=== PATIENT | female | born 1975 | race Caucasian/White ===

== ENCOUNTER → 2016-08-31 | Outpatient (CLI) | payer BC ==
--- NOTE | 2016-08-31 09:27 | MM ---
Reason for exam: follow-up at short interval from prior study. Last mammogram was performed 8 months ago. History: Patient has history of high-risk lesion on a previous biopsy at age 40 and is nulliparous. Family history of breast cancer in paternal grandmother at age 70 and breast cancer in paternal aunt at age 40. High risk MG pre op needle loc LT of the left breast, February 26, 2016. High risk MG stereo VAD BX LT of the left breast, January 16, 2016. Benign excisional biopsy of the left breast, 1990. Took hormonal contraceptives for 20 years beginning at age 20. Physical Findings: Nurse did not find any significant physical abnormalities on exam. MG 3D Diag Mammo W/Cad LT CC and MLO view(s) were taken of the left breast. Prior study comparison: January 09, 2016, left breast MG work up mamm w CAD LT. January 03, 2016, bilateral MG 3d screening mammo w/cad. The breast tissue is heterogeneously dense. This may lower the sensitivity of mammography. There is no discrete abnormality. Previous lumpectomy in the left breast. These results were verbally communicated with the patient and result sheet given to the patient on 08/31/16. ASSESSMENT: Benign, BI-RAD 2 RECOMMENDATION: Return to routine screening mammogram schedule for both breasts. Back on schedule for December 2016.
== END | disposition home or self-care (01) ==
LOC: RADMAMWWP 08:26
PROVIDERS: ATTEND Surgery
DX: R92.8 Other abnormal and inconclusive findings on diagnostic imaging of breast (principal)
CPT/HCPCS: G0206; G0279

== ENCOUNTER → 2017-01-06 | Outpatient (CLI) | payer BC ==
--- NOTE | 2017-01-07 10:20 | MM ---
Reason for exam: screening (asymptomatic). Last mammogram was performed 4 months ago. History: Patient has history of high-risk lesion on a previous biopsy at age 40 and is nulliparous. Family history of breast cancer in paternal grandmother at age 70 and breast cancer in paternal aunt at age 40. High risk MG pre op needle loc LT of the left breast, February 26, 2016. High risk MG stereo VAD BX LT of the left breast, January 16, 2016. Benign excisional biopsy of the left breast, 1990. Took hormonal contraceptives for 20 years beginning at age 20. Physical Findings: A clinical breast exam by your physician is recommended on an annual basis and results should be correlated with mammographic findings. MG 3D Screening Mammo W/Cad Bilateral CC and MLO view(s) were taken. Prior study comparison: August 31, 2016, left breast MG 3d diag mammo w/cad LT. January 03, 2016, bilateral MG 3d screening mammo w/cad. December 18, 2014, bilateral MG screening mammo w CAD. The breast tissue is heterogeneously dense. This may lower the sensitivity of mammography. There is no discrete abnormality. No significant changes when compared with prior studies. ASSESSMENT: Negative, BI-RAD 1 RECOMMENDATION: Routine screening mammogram of both breasts in 1 year.
== END | disposition home or self-care (01) ==
LOC: RADMAMWWP 16:47
PROVIDERS: ATTEND Obstetrics & Gynecology
DX: Z12.31 Encounter for screening mammogram for malignant neoplasm of breast (principal)
CPT/HCPCS: 77063; G0202

== ENCOUNTER → 2018-02-15 | Outpatient (CLI) | payer BC ==
--- NOTE | 2018-02-16 11:50 | MM ---
Reason for exam: screening (asymptomatic). Last mammogram was performed 1 year and 1 month ago. History: Patient has history of high-risk lesion on a previous biopsy at age 40 and is nulliparous. Family history of breast cancer in paternal grandmother at age 70 and breast cancer in paternal aunt at age 40. High risk MG pre op needle loc LT of the left breast, February 26, 2016. High risk MG stereo VAD BX LT of the left breast, January 16, 2016. Benign excisional biopsy of the left breast, 1990. Took hormonal contraceptives for 20 years beginning at age 20. Physical Findings: A clinical breast exam by your physician is recommended on an annual basis and results should be correlated with mammographic findings. MG 3D Screening Mammo W/Cad Bilateral CC and MLO view(s) were taken. Prior study comparison: January 06, 2017, bilateral MG 3d screening mammo w/cad. August 31, 2016, left breast MG 3d diag mammo w/cad LT. The breast tissue is heterogeneously dense. This may lower the sensitivity of mammography. There are clips in the left breast. There is no discrete abnormality. ASSESSMENT: Benign, BI-RAD 2 RECOMMENDATION: Routine screening mammogram of both breasts in 1 year.
== END | disposition home or self-care (01) ==
LOC: RADMAMWWP 07:53
PROVIDERS: ATTEND Obstetrics & Gynecology
DX: Z12.31 Encounter for screening mammogram for malignant neoplasm of breast (principal)
CPT/HCPCS: 77063; 77067

== ENCOUNTER → 2019-05-25 | Outpatient (CLI) | payer OTHER ==
--- NOTE | 2019-05-26 14:29 | MM ---
Reason for exam: screening (asymptomatic). Last mammogram was performed 1 year and 3 months ago. History: Patient has history of high-risk lesion on a previous biopsy at age 40 and is nulliparous. Family history of breast cancer in paternal grandmother at age 70 and breast cancer in paternal aunt at age 40. High risk MG pre op needle loc LT of the left breast, February 26, 2016. High risk MG stereo VAD BX LT of the left breast, January 16, 2016. Benign excisional biopsy of the left breast, 1990. Took hormonal contraceptives for 20 years beginning at age 20. Physical Findings: A clinical breast exam by your physician is recommended on an annual basis and results should be correlated with mammographic findings. MG 3D Screening Mammo W/Cad Bilateral CC and MLO view(s) were taken. Prior study comparison: February 15, 2018, bilateral MG 3d screening mammo w/cad. January 06, 2017, bilateral MG 3d screening mammo w/cad. The breast tissue is heterogeneously dense. This may lower the sensitivity of mammography. There is no discrete abnormality. Stable post operative changes upper outer quadrant left breast. No significant changes when compared with prior studies. ASSESSMENT: Benign, BI-RAD 2 RECOMMENDATION: Routine screening mammogram of both breasts in 1 year.
== END | disposition home or self-care (01) ==
LOC: RADMAMWWP 12:31
PROVIDERS: ATTEND Obstetrics & Gynecology
DX: Z12.31 Encounter for screening mammogram for malignant neoplasm of breast (principal); Z80.3 Family history of malignant neoplasm of breast
CPT/HCPCS: 77063; 77067

== ENCOUNTER 2019-06-24 16:32 | Emergency (ER) | payer OTHER ==
[2019-06-24 16:37] VITALS: RESP 18; TEMP 98.2
[2019-06-24] MEDS ORDERED: ONDANSETRON 4 MG/2 ML VIAL IVP STA (16:58)
[2019-06-24] MEDS ORDERED: SODIUM CHLORIDE 0.9% 500 ML 500 ML IV STA (16:58)
[2019-06-24] MEDS ORDERED: MORPHINE SULFATE 4 MG/ML SYRINGE IV STA (16:58)
[2019-06-24] MEDS ORDERED: KETOROLAC 30 MG/ML 1 ML VIAL IVP STA (16:58)
[2019-06-24] MEDS ORDERED: SODIUM CHLORIDE 0.9% 1,000 ML IV STA (16:58)
--- NOTE | 2019-06-24 17:28 | ED ---
Abdominal Pain HPI - General Chief Complaint: Abdominal Pain Stated Complaint: L side pain Time Seen by Provider: 06/24/19 16:53 Source: patient Mode of arrival: ambulatory Limitations: no limitations - History of Present Illness Initial Comments: This 43-year-old female presents complaining of some left lower quadrant abdominal pain. She states that this came on fairly suddenly at approximately 3 PM today. She relates that over the past couple of days she has had some increased urinary frequency. She was seen in her doctor's office yesterday and had a negative urine. She denies any possibility of as she is currently menstruating. She has had some nausea but no vomiting, diarrhea, constipation, fever, or chills. She denies any previous similar incidents. There is no flank pain. She denies any history of kidney stones. She states that the pain is severe in nature. No other complaints or modifying factors. - Related Data Home Medications Medication Instructions Recorded Confirmed Cetirizine HCl [Zyrtec] 10 mg PO DAILY 02/25/16 02/26/16 Cholecalciferol (Vitamin D3) 10,000 unit PO DAILY 02/25/16 02/26/16 [Vitamin D3] Teriflunomide [Aubagio] 14 mg PO DAILY 02/25/16 02/26/16 Previous Rx's Medication Instructions Recorded traMADol HCl [Ultram] 100 mg PO Q4HR PRN #30 tab 02/26/16 Ciprofloxacin HCl [Cipro] 500 mg PO Q12HR #14 tablet 06/24/19 Hydrocodone/Acetaminophen [Widen 1 - 2 each PO Q4HR PRN #20 tab 06/24/19 5-325] Ondansetron Odt [Zofran ODT] 8 mg PO Q8HR PRN #15 tab 06/24/19 Tamsulosin [Flomax] 0.4 mg PO DAILY #15 cap 06/24/19 Allergies Allergy/AdvReac Type Severity Reaction Status Date / Time amoxicillin Allergy Rash/Hives Verified 02/25/16 09:22 Sulfa (Sulfonamide Allergy Rash/Hives Verified 02/25/16 09:22 Antibiotics) codeine AdvReac migraine, Verified 02/25/16 09:22 N/V Review of Systems ROS Statement: Those systems with pertinent positive or pertinent negative responses have been documented in the HPI. ROS Other: All systems not noted in ROS Statement are negative. Past Medical History Past Medical History: Neurologic Disorder Additional Past Medical History / Comment(s): multiple sclerosis History of Any Multi-Drug Resistant Organisms: None Reported Past Surgical History: Breast Surgery, Orthopedic Surgery Additional Past Surgical History / Comment(s): right knee surg., breast biopsy Past Anesthesia/Blood Transfusion Reactions: No Reported Reaction Past Psychological History: No Psychological Hx Reported Smoking Status: Current every day smoker Past Alcohol Use History: Occasional Past Drug Use History: None Reported - Past Family History Father Family Medical History: Cancer General Exam - General Exam Comments Initial Comments: GENERAL: The patient is well nourished and well hydrated. VITAL SIGNS: Heart rate, blood pressure, respiratory rate reviewed as recorded in nurse's notes. EYES: Pupils are round and reactive. Extraocular movements are intact. No conjunctival / lid redness or swelling. ENT: No external evidence of injury, swelling, or ecchymosis. Airway is patent. Throat is clear. NECK: Nontender. No swelling or evidence of injury. No subcutaneous emphysema. T rachea is midline. No thyroid mass. HEART: Regular rate and rhythm. Good peripheral pulses. LUNGS/CHEST: Breath sounds clear and equal bilaterally. No rales, rhonchi, or wheezes. No ecchymosis, subcutaneous emphysema, or tenderness. ABDOMEN: Tenderness is noted to the left lower quadrant inferiorly. No flank tenderness noted. No palpable masses or organomegaly. No peritoneal signs. No abdominal wall swelling or ecchymosis. EXTREMITIES: No extremity tenderness. Normal muscle tone and function. No thoracolumbar tenderness. NEUROLOGIC: Sensation is grossly intact. Cranial nerve exam reveals face is symmetrical, tongue is midline, speech is clear. SKIN: No abrasions or ecchymosis is noted. No induration or masses noted. PSYCHIATRIC: Alert and oriented. Appropriate behavior and judgment. Limitations: no limitations Course Vital Signs 06/24/19 06/24/19 06/24/19 16:35 17:21 18:42 Temperature 98.2 F Pulse Rate 97 96 86 Respiratory 18 18 18 Rate Blood Pressure 182/109 148/97 142/81 O2 Sat by Pulse 98 95 95 Oximetry Medical Decision Making - Medical Decision Making The patient was seen and examined. All diagnostics are reviewed. An IV is established and she does receive some IV morphine as well as some Zofran. The white blood cell count is slightly elevated but otherwise the laboratories unremarkable. The urine shows a degree of hematuria. The computed tomography scan of the abdomen and pelvis does show a 2 mm distal left ureteral stone with associated hydronephrosis. The patient is feeling much improved on recheck. Is felt as though she is stable for discharge. She is counseled regarding her condition in detail and leaves in no distress. Return parameters are discussed. - Lab Data Result diagrams: 06/24/19 17:20 06/24/19 17: Lab Results 06/24/19 06/24/19 06/24/19 Range/Units 17:20 17: 17:20 WBC 14.8 H (3.8-10.6) k/uL RBC 4.66 (3.80-5.40) m/uL Hgb 14.4 (11.4-16.0) gm/dL Hct 44.4 (34.0-46.0) % MCV 95.2 (80.0-100.0) fL MCH 30.8 (25.0-35.0) pg MCHC 32.4 (31.0-37.0) g/dL RDW 12.3 (11.5-15.5) % Plt Count 358 (150-450) k/uL Neutrophils % 70 % Lymphocytes % 23 % Monocytes % 3 % Eosinophils % 2 % Basophils % 1 % Neutrophils # 10.4 H (1.3-7.7) k/uL Lymphocytes # 3.4 (1.0-4.8) k/uL Monocytes # 0.5 (0-1.0) k/uL Eosinophils # 0.3 (0-0.7) k/uL Basophils # 0.1 (0-0.2) k/uL Sodium 138 (137-145) mmol/L Potassium 4.4 (3.5-5.1) mmol/L Chloride 108 H (98-107) mmol/L Carbon Dioxide 23 (22-30) mmol/L Anion Gap 7 mmol/L BUN 17 (7-17) mg/dL Creatinine 0.72 (0.52-1.04) mg/dL Est GFR (CKD-EPI)AfAm >90 (>60 ml/min/1.73 sqM) Est GFR (CKD-EPI)NonAf >90 (>60 ml/min/1.73 sqM) Glucose 80 (74-99) mg/dL Calcium 9.4 (8.4-10.2) mg/dL Total Bilirubin 0.5 (0.2-1.3) mg/dL AST 23 (14-36) U/L ALT 15 (4-34) U/L Alkaline Phosphatase 55 (38-126) U/L Total Protein 6.4 (6.3-8.2) g/dL Albumin 3.9 (3.5-5.0) g/dL Urine Color Urine Appearance (Clear) Urine pH (5.0-8.0) Ur Specific [place] (1.001-1.035) Urine Protein (Negative) Urine Glucose (UA) (Negative) Urine Ketones (Negative) Urine Blood (Negative) Urine Nitrite (Negative) Urine Bilirubin (Negative) Urine Urobilinogen (<2.0) mg/dL Ur Leukocyte Esterase (Negative) Urine RBC (0-5) /hpf Urine WBC (0-5) /hpf Ur Squamous Epith Cells (0-4) /hpf Hyaline Casts (0-2) /lpf Urine Mucus (None) /hpf Urine HCG, Qual Not Detected (Not Detectd) 06/24/19 Range/Units 17:20 WBC (3.8-10.6) k/uL RBC (3.80-5.40) m/uL Hgb (11.4-16.0) gm/dL Hct (34.0-46.0) % MCV (80.0-100.0) fL MCH (25.0-35.0) pg MCHC (31.0-37.0) g/dL RDW (11.5-15.5) % Plt Count (150-450) k/uL Neutrophils % % Lymphocytes % % Monocytes % % Eosinophils % % Basophils % % Neutrophils # (1.3-7.7) k/uL Lymphocytes # (1.0-4.8) k/uL Monocytes # (0-1.0) k/uL Eosinophils # (0-0.7) k/uL Basophils # (0-0.2) k/uL Sodium (137-145) mmol/L Potassium (3.5-5.1) mmol/L Chloride (98-107) mmol/L Carbon Dioxide (22-30) mmol/L Anion Gap mmol/L BUN (7-17) mg/dL Creatinine (0.52-1.04) mg/dL Est GFR (CKD-EPI)AfAm (>60 ml/min/1.73 sqM) Est GFR (CKD-EPI)NonAf (>60 ml/min/1.73 sqM) Glucose (74-99) mg/dL Calcium (8.4-10.2) mg/dL Total Bilirubin (0.2-1.3) mg/dL AST (14-36) U/L ALT (4-34) U/L Alkaline Phosphatase (38-126) U/L Total Protein (6.3-8.2) g/dL Albumin (3.5-5.0) g/dL Urine Color Yellow Urine Appearance Clear (Clear) Urine pH 5.5 (5.0-8.0) Ur Specific [place] 1.026 (1.001-1.035) Urine Protein 1+ H (Negative) Urine Glucose (UA) Negative (Negative) Urine Ketones Negative (Negative) Urine Blood Large H (Negative) Urine Nitrite Negative (Negative) Urine Bilirubin Negative (Negative) Urine Urobilinogen <2.0 (<2.0) mg/dL Ur Leukocyte Esterase Trace H (Negative) Urine RBC >182 H (0-5) /hpf Urine WBC 8 H (0-5) /hpf Ur Squamous Epith Cells 2 (0-4) /hpf Hyaline Casts 1 (0-2) /lpf Urine Mucus Rare H (None) /hpf Urine HCG, Qual (Not Detectd) Disposition Clinical Impression: Acute abdominal pain, Nausea, Ureterolithiasis, Hematuria Disposition: HOME SELF-CARE Condition: Good Instructions (If sedation given, give patient instructions): Kidney Stones (ED) Prescriptions: Ciprofloxacin HCl [Cipro] 500 mg PO Q12HR #14 tablet Tamsulosin [Flomax] 0.4 mg PO DAILY #15 cap Hydrocodone/Acetaminophen [Widen 5-325] 1 - 2 each PO Q4HR PRN #20 tab PRN Reason: Pain Ondansetron Odt [Zofran ODT] 8 mg PO Q8HR PRN #15 tab PRN Reason: Nausea And Vomiting Is patient prescribed a controlled substance at d/c from ED?: Yes When asked, does pt state using other controlled substances?: No If prescribed controlled substance>3 days was MAPS reviewed?: Prescribed <3 Days Referrals: Mina Carson MD [Primary Care Provider] - 1-2 days Fernando Cha MD [STAFF PHYSICIAN] - As Soon As Possible Time of Disposition: 18:52
[2019-06-24 17:33] LABS: Basophils # (A) 0.1 k/uL (0-0.2); Basophils % (A) 1 %; Eosinophils # (A) 0.3 k/uL (0-0.7); Eosinophils % (A) 2 %; HCT 44.4 % (34.0-46.0); HGB 14.4 gm/dL (11.4-16.0); Lymphocytes # (A) 3.4 k/uL (1.0-4.8); Lymphocytes % (A) 23 %; MCH 30.8 pg (25.0-35.0); MCHC 32.4 g/dL (31.0-37.0); MCV 95.2 fL (80.0-100.0); Mean Platelet Volume 6.9; Monocytes # (A) 0.5 k/uL (0-1.0); Monocytes % (A) 3 %; Neutrophils # (A) 10.4 k/uL (1.3-7.7); Neutrophils % (A) 70 %; Platelet Count 358 k/uL (150-450); RBC 4.66 m/uL (3.80-5.40); RDW 12.3 % (11.5-15.5); WBC 14.8 k/uL (3.8-10.6)
[2019-06-24 17:37] LABS: Appearance,Urine Clear (Clear); Bilirubin,Urine Negative (Negative); Blood,Urine Large (Negative); Color,Urine Yellow; Glucose,Urine (UA) Negative (Negative); Hyaline Casts,Urine 1 /lpf (0-2); Ketones,Urine Negative (Negative); Leukocyte Esterase,Urine Trace (Negative); Mucus,Urine Rare /hpf; Nitrite,Urine Negative (Negative); PH, Urine 5.5 (5.0-8.0); Protein,Urine 1+ (Negative); RBC,Urine >182 /hpf (0-5); Specific Gravity,Urine 1.026 (1.001-1.035); Squamous Epithelial Cell,Urine 2 /hpf (0-4); Urobilinogen,Urine <2.0 mg/dL (<2.0); WBC,Urine 8 /hpf (0-5)
[2019-06-24 17:43] LABS: ALT 15 U/L (4-34); AST 23 U/L (14-36); African American GFR (CKD) >90 (>60 ml/min/1.73 sqM); Albumin 3.9 g/dL (3.5-5.0); Alkaline Phosphatase 55 U/L (38-126); Anion Gap 7 mmol/L; Blood Urea Nitrogen 17 mg/dL (7-17); Calcium 9.4 mg/dL (8.4-10.2); Carbon Dioxide 23 mmol/L (22-30); Chloride 108 mmol/L (98-107); Glucose 80 mg/dL (74-99); Non-African American GFR(CKD) >90 (>60 ml/min/1.73 sqM); Potassium 4.4 mmol/L (3.5-5.1); Sodium 138 mmol/L (137-145); Total Bilirubin 0.5 mg/dL (0.2-1.3); Total Protein 6.4 g/dL (6.3-8.2)
[2019-06-24 18:43] VITALS: BP 142/81; PULSE 86
--- NOTE | 2019-06-24 18:44 | CT ---
EXAMINATION TYPE: CT abdomen pelvis wo con DATE OF EXAM: 06/24/2019 COMPARISON: None HISTORY: Left sided inguinal pain. CT DLP: 803.2 mGycm Automated exposure control for dose reduction was used. Multiple axial sections were obtained from the diaphragm to the floor the pelvis without contrast. FINDINGS: Lung bases show mild subsegmental atelectasis. There is no pleural effusion. Heart appears normal. There is small hiatal hernia. Stomach is intact. Liver spleen gallbladder pancreas appear normal. Samir e ducts are not dilated. There is no adrenal mass. Kidneys have fairly normal size. There is left-sided hydronephrosis and per inephric edema. There is mild left-sided hydroureter. There is apparent 2 mm calculus at the left ure teral vesicle junction. Bladder distends smoothly. Right kidney shows no sign of obstruction. There is no retroperitoneal adenopathy. Uterus is anteverted. There is no free fluid in the pelvis. There is no inguinal hernia. There is mil d left side periureteral edema. There is no mesenteric edema. There is no ascites or free air. There is no sign of thickened appendix . There is no bowel obstruction. There is narrowing of L4-5 and L5-S1 disc spaces. There is no compre ssion fracture. Lumbar vertebra have normal alignment. Bony pelvis is intact. IMPRESSION: Spondylosis in the lower lumbar spine. Left side periureteral and perinephric edema with enlarged kidney and hydronephrosis. Small obstructi ng calculus at the ureteral vesicle junction.
== END 2019-06-24 19:11 | disposition home or self-care (01) ==
LOC: EC 16:32
DX: N13.2 Hydronephrosis with renal and ureteral calculous obstruction (principal); G35 Multiple sclerosis; F17.200 Nicotine dependence, unspecified, uncomplicated; Z88.0 Allergy status to penicillin; Z88.2 Allergy status to sulfonamides; Z88.5 Allergy status to narcotic agent; Z79.899 Other long term (current) drug therapy
CPT/HCPCS: 99284; 96374; 96375 ×2; 96361 ×2; 36415; 80053; 85025; 81001; 81025; 74176; J2270; J2405; J1885

== ENCOUNTER → 2020-07-15 | Outpatient (CLI) | payer OTHER ==
--- NOTE | 2020-07-17 09:44 | MM ---
Reason for exam: screening (asymptomatic). Last mammogram was performed 1 year and 2 months ago. History: Patient has history of high-risk lesion on a previous biopsy at age 40 and is nulliparous. Family history of breast cancer in paternal grandmother at age 70 and breast cancer in paternal aunt at age 40. High risk MG pre op needle loc LT of the left breast, February 26, 2016. High risk MG stereo VAD BX LT of the left breast, January 16, 2016. Benign excisional biopsy of the left breast, 1990. Took hormonal contraceptives for 20 years beginning at age 20. Physical Findings: A clinical breast exam by your physician is recommended on an annual basis and results should be correlated with mammographic findings. MG 3D Screening Mammo W/Cad Bilateral CC and MLO view(s) were taken. Prior study comparison: May 25, 2019, bilateral MG 3d screening mammo w/cad. February 15, 2018, bilateral MG 3d screening mammo w/cad. The breast tissue is heterogeneously dense. This may lower the sensitivity of mammography. Post excisional changes left breast. Increasing grouped calcifications left posterior upper outer quadrant at surgical site. ASSESSMENT: Incomplete: need additional imaging evaluation, BI-RAD 0 RECOMMENDATION: Special view mammogram of the left breast. (magnification) If lesion persists on supplemental views, image directed ultrasound is recommended. [facility] will attempt to contact patient to return for supplemental views and ultrasound if indicated.
== END | disposition home or self-care (01) ==
LOC: RADMAMWWP 16:27
PROVIDERS: ATTEND Obstetrics & Gynecology
DX: Z12.31 Encounter for screening mammogram for malignant neoplasm of breast (principal); Z80.3 Family history of malignant neoplasm of breast
CPT/HCPCS: 77063; 77067

== ENCOUNTER → 2020-07-18 | Outpatient (CLI) | payer OTHER ==
--- NOTE | 2020-07-18 09:21 | MM ---
Reason for exam: additional evaluation requested from abnormal screening. Last mammogram was performed less than 1 month ago. History: Patient has history of high-risk lesion on a previous biopsy at age 40 and is nulliparous. Family history of breast cancer in paternal grandmother at age 70 and breast cancer in paternal aunt at age 40. High risk MG pre op needle loc LT of the left breast, February 26, 2016. High risk MG stereo VAD BX LT of the left breast, January 16, 2016. Benign excisional biopsy of the left breast, 1990. Took hormonal contraceptives for 20 years beginning at age 20. Physical Findings: Nurse did not find any significant physical abnormalities on exam. MG 3D Work Up W/Cad LT CC with magnification, LM with magnification, and LM view(s) were taken of the left breast. Prior study comparison: July 15, 2020, bilateral MG 3d screening mammo w/cad. May 25, 2019, bilateral MG 3d screening mammo w/cad. The breast tissue is heterogeneously dense. This may lower the sensitivity of mammography. New increasing amorphous calcifications upper outer quadrant 2-3 o'clock position in a patient with prior excision for ADH. Two site stereotactic core biopsy recommended from a lateral approach. These results were verbally communicated with the patient and result sheet given to the patient on 07/18/20. ASSESSMENT: Suspicious, BI-RAD 4 RECOMMENDATION: Stereotactic core biopsy of the left breast. (two sites, consider lateral approach) Called Dr. Rush's office with mammographic findings and has scheduled an appointment for the patient for 09/05/20 at 11:[address] Bennett. Biopsy scheduled for 08/05/20 at 8:00. PRELIMINARY REPORT CALLED AND FAXED TO DR. BENNETT ON 07/18/20.
== END | disposition home or self-care (01) ==
LOC: RADMAMWWP 07:03
PROVIDERS: ATTEND Obstetrics & Gynecology
DX: R92.8 Other abnormal and inconclusive findings on diagnostic imaging of breast (principal)
CPT/HCPCS: 77061; 77065

== ENCOUNTER → 2020-08-05 | Day surgery (SDC) | payer OTHER ==
[2020-08-05 07:29] VITALS: RESP 16; TEMP 98.3
[2020-08-05 10:09] VITALS: BP 122/81; PULSE 82
--- NOTE | 2020-08-05 17:22 | MM ---
EXAMINATION TYPE: MG stereo VAD BX LT, MG stereo VAD BX addl LT DATE OF EXAM: 08/05/2020 COMPARISON: 07/15/2020, 07/18/2020, 01/06/2017 CLINICAL HISTORY: 44-year-old female with previous history of left breast excision for high risk ADH with recurrent microcalcifications. TECHNIQUE: Stereotactic guided core biopsy of the upper outer quadrant left breast, 2 sites. FINDINGS: The procedure of stereotactic guided core biopsy was explained to the patient. Benefits, alternatives, and risks were discussed. An informed consent was then obtained. [facility]. Short[facility] pathway was a lateral approach. I performed the localization, followed by the remainder of the procedure. SITE 1, Superior, anterior calcifications: A vacuum assisted biopsy gun was used to obtain 6 core samples. A Securemark clip was deposited. SITE 2, Inferior, posterior calcifications: A vacuum assisted biopsy gun was used to obtain 6 core samples. A Trimark clip was deposited. The patient tolerated the procedure well without any immediate complication. The patient was kept in the radiology department for short stay after the procedure and then discharged home in stable condition. Targeted calcifications are identified in specimen mammogram. POST BIOPSY MAMMOGRAM shows: - SITE 1, Superior, anterior calcifications, Securemark: the clip to appear in satisfactory position relative to the targeted area of concern on the preprocedure images. - SITE 2, Inferior, posterior calcifications, Trimark: The clip appears to show 2 cm of medial migration as demonstrated on both PACS and Secureview. IMPRESSION: SUCCESSFUL, UNCOMPLICATED STEREOTACTIC GUIDED CORE BIOPSY OF 2 SITES OF RECURRENT MICROCALCIFICATIONS IN THE UPPER OUTER QUADRANT OF THE LEFT BREAST AT THE SITE OF PREVIOUS EXCISION FOR ADH. NOTE 2 CM OF MEDIAL CLIP MIGRATION AT SITE 2. FULL PATHOLOGY RESULTS TO FOLLOW. Pathology Results: Benign A. LEFT BREAST, SITE 1 SUPERIOR, STEREOTACTIC CORE BIOPSY: Fibrocystic changes including cysts with calcifications, apocrine metaplasia, fibrosis and columnar cell change. B. LEFT BREAST, SITE 2 INFERIOR, STEREOTACTIC CORE BIOPSY: Fibrocystic changes including cysts with calcifications, apocrine metaplasia, fibrosis, sclerosing adenosis and columnar cell change. Recommendation Follow up mammogram of the left breast in 6 months. KODY
== END ==
LOC: RADMAMWWP 07:10
PROVIDERS: ATTEND Surgery
DX: R92.1 Mammographic calcification found on diagnostic imaging of breast (principal); N60.12 Diffuse cystic mastopathy of left breast; Z88.5 Allergy status to narcotic agent; Z88.0 Allergy status to penicillin; Z88.2 Allergy status to sulfonamides
CPT/HCPCS: 88305; 19081; 19082; A4648; J2001

== ENCOUNTER → 2021-02-07 | Outpatient (CLI) | payer OTHER ==
--- NOTE | 2021-02-07 14:09 | MM ---
Reason for exam: follow-up at short interval from prior study. Last mammogram was performed 7 months ago. History: Patient has history of high-risk lesion on a previous biopsy at age 40 and is nulliparous. Family history of breast cancer in paternal grandmother at age 70 and breast cancer in paternal aunt at age 40. Benign MG stereo VAD BX addl LT of the left breast, August 05, 2020. Benign MG stereo VAD BX LT of the left breast, August 05, 2020. High risk MG pre op needle loc LT of the left breast, February 26, 2016. High risk MG stereo VAD BX LT of the left breast, January 16, 2016. Benign excisional biopsy of the left breast, 1990. Took hormonal contraceptives for 20 years beginning at age 20. Physical Findings: Nurse did not find any significant physical abnormalities on exam. MG 3D Diag Mammo W/Cad LT CC and MLO view(s) were taken of the left breast. Prior study comparison: July 18, 2020, left breast MG 3d work up w/cad LT. July 15, 2020, bilateral MG 3d screening mammo w/cad. The breast tissue is heterogeneously dense. This may lower the sensitivity of mammography. Stable post operative changes. No significant new findings when compared with previous films. These results were verbally communicated with the patient and result sheet given to the patient on 02/07/21. ASSESSMENT: Benign, BI-RAD 2 RECOMMENDATION: Follow-up diagnostic mammogram of both breasts in 6 months. Back on schedule.
== END | disposition home or self-care (01) ==
LOC: RADMAMWWP 12:57
PROVIDERS: ATTEND Surgery
DX: R92.2 Inconclusive mammogram (principal); Z80.3 Family history of malignant neoplasm of breast
CPT/HCPCS: 77061; 77065

== ENCOUNTER → 2021-07-24 | Outpatient (CLI) | payer OTHER ==
--- NOTE | 2021-07-24 14:19 | MM ---
Reason for exam: follow-up at short interval from prior study. Last mammogram was performed 5 months ago. History: Patient has history of high-risk lesion on a previous biopsy at age 40 and is nulliparous. Family history of breast cancer in paternal grandmother at age 70 and breast cancer in paternal aunt at age 40. Benign MG stereo VAD BX addl LT of the left breast, August 05, 2020. Benign MG stereo VAD BX LT of the left breast, August 05, 2020. High risk MG pre op needle loc LT of the left breast, February 26, 2016. High risk MG stereo VAD BX LT of the left breast, January 16, 2016. Benign excisional biopsy of the left breast, 1990. Took hormonal contraceptives for 20 years beginning at age 20. Physical Findings: Nurse did not find any significant physical abnormalities on exam. MG 3D Diag Mammo W/Cad MICKY Bilateral CC and MLO view(s) were taken. Prior study comparison: February 07, 2021, left breast MG 3d diag mammo w/cad LT. July 18, 2020, left breast MG 3d work up w/cad LT. The breast tissue is heterogeneously dense. This may lower the sensitivity of mammography. Previous mammotome biopsy in the left breast x 2 from recent biopsies, some calcifications remain posterior upper outer quadant. Post excisional changes left breast for remote ADH. Short term follow up recommended. No significant new findings when compared with previous films. These results were verbally communicated with the patient and result sheet given to the patient on 07/24/21. ASSESSMENT: Probably benign, BI-RAD 3 RECOMMENDATION: Follow-up diagnostic mammogram of the left breast in 6 months.
== END | disposition home or self-care (01) ==
LOC: RADMAMWWP 12:46
PROVIDERS: ATTEND Obstetrics & Gynecology
DX: R92.8 Other abnormal and inconclusive findings on diagnostic imaging of breast (principal); Z80.3 Family history of malignant neoplasm of breast
CPT/HCPCS: 77062; 77066

== ENCOUNTER → 2021-08-02 | Outpatient (CLI) | payer OTHER ==
[2021-08-02 16:46] LABS: Basophils # (A) 0.08 X 10*3/uL (0.00-0.10); Eosinophils # (A) 0.39 X 10*3/uL (0.04-0.35); HCT 41.1 % (37.2-46.3); HGB 13.1 g/dL (12.0-15.0); Immature Grans, Automated 0.3 %; Lymphocytes # (A) 2.98 X 10*3/uL (0.90-5.00); Lymphocytes % (A) 38.6 %; MCH 31.4 pg (27.0-32.0); MCHC 31.9 g/dL (32.0-37.0); MCV 98.6 fL (80.0-97.0); Monocytes % (A) 5.2 %; NRBC Per 100 WBC 0 /100 WBCS (0.0-0.0); Neutrophils # (A) 3.86 X 10*3/uL (1.80-7.70); Neutrophils % (A) 49.9 %; Platelet Count 327 X 10*3/uL (140-440); RBC 4.17 X 10*6/uL (4.10-5.20); RDW 12.8 % (11.5-14.5); WBC 7.73 X 10*3/uL (4.50-10.00)
[2021-08-02 17:14] LABS: African American GFR (CKD) 120.4 (60.0-200.0); Anion Gap 14.4 mmol/L (10.00-18.00); Blood Urea Nitrogen 7.6 mg/dL (9.0-27.0); Carbon Dioxide 23.6 mmol/L (20.0-27.5); Non-African American GFR(CKD) 103.9 (60.0-200.0); Potassium 4.1 mmol/L (3.5-5.5)
== END | disposition home or self-care (01) ==
LOC: LABWHC1 09:40
PROVIDERS: ATTEND Psychiatry & Neurology Neurology
DX: G35 Multiple sclerosis (principal); E55.9 Vitamin D deficiency, unspecified
CPT/HCPCS: 36415; 80051; 82306; 82565; 84450; 84460; 84520; 85025

== ENCOUNTER → 2022-01-26 | Outpatient (CLI) | payer OTHER, BC ==
--- NOTE | 2022-01-26 14:19 | MM ---
Reason for Exam: Follow-up at short interval from prior study. Last screening mammogram was performed 6 month(s) ago. Patient History: Menarche at age 13. Patient has no children. Previous chest radiation therapy. Hormonal Contraceptives, starting at age 20 for 20 years. 1990, Benign Excisional Biopsy on the left side. 08/05/2020, Benign Core Biopsy on the left side. 08/05/2020, Benign Core Biopsy on the left side. 02/26/2016, High risk Core Biopsy on the left side. 01/16/2016, High risk Core Biopsy on the left side. Paternal grandmother had breast cancer, age 70. Paternal aunt had breast cancer, age 40. Last menstrual period: 01/14/2022 Risk Values: Yaneth 5 year model risk: 1.9%. NCI Lifetime model risk: 14.4%. Prior Study Comparison: 07/18/2020 Left Diagnostic Mammogram, [facility]. 02/07/2021 Left Diagnostic Mammogram, [facility]. 07/24/2021 Bilateral Diagnostic Mammogram, [facility]. Tissue Density: Left: The breast tissue is heterogeneously dense. This may lower the sensitivity of mammography. Findings: Analyzed By CAD. No new suspicious masses consultations or distortions. Overall Assessment: Benign, BI-RAD 2 Management: Screening Mammogram of both breasts in 1 year. A clinical breast exam by your physician is recommended on an annual basis and results should be correlated with mammographic findings. This exam should not preclude additional follow-up of suspicious palpable abnormalities. Results were given to the patient verbally at the time of exam. Electronically signed and approved by: Sahil Perry DO
== END | disposition home or self-care (01) ==
LOC: RADMAMWWP 13:32
PROVIDERS: ATTEND Obstetrics & Gynecology
DX: R92.8 Other abnormal and inconclusive findings on diagnostic imaging of breast (principal); Z80.3 Family history of malignant neoplasm of breast
CPT/HCPCS: 77061; 77065

== ENCOUNTER → 2022-04-24 | Outpatient (CLI) | payer OTHER, BC ==
--- NOTE | 2022-04-24 13:33 | XR ---
EXAMINATION TYPE: XR Hip Bilateral Complete DATE OF EXAM: 04/24/2022 COMPARISON: NONE HISTORY: Pain TECHNIQUE: 2 views of each hip submitted FINDINGS: There is no evidence of erosive change or acute fracture. Joint spaces are preserved. IMPRESSION: 1. No evidence of acute fracture or dislocation. Symptoms persist consider MRI
== END | disposition home or self-care (01) ==
LOC: RADXRMAIN 13:00
PROVIDERS: ATTEND Family Medicine
DX: M25.551 Pain in right hip (principal); M25.552 Pain in left hip
CPT/HCPCS: 73521

== ENCOUNTER → 2022-08-25 | Outpatient (CLI) | payer OTHER, BC ==
[2022-08-25 14:31] LABS: Basophils # (A) 0.09 X 10*3/uL (0.00-0.10); Basophils % (A) 1.2 %; Eosinophils # (A) 0.28 X 10*3/uL (0.04-0.35); Eosinophils % (A) 3.8 %; HCT 41.8 % (37.2-46.3); HGB 13.7 g/dL (12.0-15.0); Immature Grans, Automated 0.3 %; Lymphocytes # (A) 2.75 X 10*3/uL (0.90-5.00); Lymphocytes % (A) 37.2 %; MCH 32.2 pg (27.0-32.0); MCHC 32.8 g/dL (32.0-37.0); MCV 98.1 fL (80.0-97.0); Mean Platelet Volume 9.9 fL (9.5-12.2); Monocytes # (A) 0.47 X 10*3/uL (0.20-1.00); Monocytes % (A) 6.4 %; NRBC Per 100 WBC 0 /100 WBCS (0.0-0.0); Neutrophils # (A) 3.78 X 10*3/uL (1.80-7.70); Neutrophils % (A) 51.1 %; Platelet Count 348 X 10*3/uL (140-440); RBC 4.26 X 10*6/uL (4.10-5.20); RDW 12.3 % (11.5-14.5); WBC 7.39 X 10*3/uL (4.50-10.00)
[2022-08-25 14:54] LABS: African American GFR (CKD) 118.8 (60.0-200.0); Albumin 4.1 g/dL (3.8-4.9); Albumin/Globulin Ratio 1.73 (1.60-3.17); Anion Gap 9.8 mmol/L (10.00-18.00); BUN/Creat Ratio 17.74 Ratio (12.00-20.00); Blood Urea Nitrogen 12.4 mg/dL (9.0-27.0); Calcium 9.1 mg/dL (8.7-10.3); Carbon Dioxide 25.2 mmol/L (20.0-27.5); Globulin 2.4 g/dL (1.6-3.3); Non-African American GFR(CKD) 102.5 (60.0-200.0); Potassium 4.1 mmol/L (3.5-5.5); Total Bilirubin 0.4 mg/dL (0.30-1.20); Total Protein 6.5 g/dL (6.2-8.2)
== END | disposition home or self-care (01) ==
LOC: LABWHC1 08:07
PROVIDERS: ATTEND Psychiatry & Neurology Neurology
DX: G35 Multiple sclerosis (principal); E55.9 Vitamin D deficiency, unspecified
CPT/HCPCS: 36415; 80053; 82306; 85025

== ENCOUNTER → 2022-09-15 | Outpatient (CLI) | payer OTHER, BC ==
--- NOTE | 2022-09-16 11:09 | MM ---
Reason for Exam: Screening (asymptomatic). Last mammogram was performed 1 year(s) and 2 month(s) ago. Patient History: Menarche at age 13. Patient has no children. Premenopausal. Previous chest radiation therapy. Hormonal Contraceptives, starting at age 20 for 20 years. 1990, Benign Excisional Biopsy on the left side. 08/05/2020, Benign Core Biopsy on the left side. 08/05/2020, Benign Core Biopsy on the left side. 02/26/2016, High risk Core Biopsy on the left side. 01/16/2016, High risk Core Biopsy on the left side. Paternal grandmother had breast cancer, age 70. Paternal aunt had breast cancer, age 40. Risk Values: Yaneth 5 year model risk: 1.8%. NCI Lifetime model risk: 14.0%. Prior Study Comparison: 02/07/2021 Left Diagnostic Mammogram, [facility]. 07/24/2021 Bilateral Diagnostic Mammogram, [facility]. 01/26/2022 Left MG 3D diag mammo w/cad , [facility]. Tissue Density: The breast tissue is heterogeneously dense. This may lower the sensitivity of mammography. Findings: Analyzed By CAD. There is no suspicious group of microcalcifications or new suspicious mass in either breast. Postsurgical changes left breast. Previous mammotome biopsy within the left breast x3. Overall Assessment: Benign, BI-RAD 2 Management: Screening Mammogram of both breasts in 1 year. A clinical breast exam by your physician is recommended on an annual basis and results should be correlated with mammographic findings. Electronically signed and approved by: Armand Polanco D.O.
== END | disposition home or self-care (01) ==
LOC: RADMAMWWP 08:35
PROVIDERS: ATTEND Obstetrics & Gynecology
DX: Z12.31 Encounter for screening mammogram for malignant neoplasm of breast (principal); Z80.3 Family history of malignant neoplasm of breast
CPT/HCPCS: 77063; 77067

== ENCOUNTER 2022-09-21 11:56 | Day surgery (SDC) | payer OTHER, BC ==
[~2022-09-21 11:56] MED LIST: LACTATED RINGERS 1,000 ML IV SCH; LIDOCAINE 1% (10MG/ML) FOR IV START INTRADERMA PRN
[2022-09-21 12:20] VITALS: RESP 16; TEMP 97.8
--- NOTE | 2022-09-21 12:38 | P.GSHP ---
History of Present Illness H&P Date: 09/21/22 Chief Complaint: GERD, screening colonoscopy A 39-year-old female presents today for EGD and screening colonoscopy. She is issues with GERD. Past Medical History Past Medical History: Neurologic Disorder Additional Past Medical History / Comment(s): multiple sclerosis, history of kidney stones History of Any Multi-Drug Resistant Organisms: None Reported Past Surgical History: Breast Surgery, Orthopedic Surgery Additional Past Surgical History / Comment(s): OPEN. right knee surg., left breast biopsy Past Anesthesia/Blood Transfusion Reactions: No Reported Reaction Past Psychological History: No Psychological Hx Reported Smoking Status: Current every day smoker Past Alcohol Use History: Occasional Additional Past Alcohol Use History / Comment(s): 6 CIGS since age of 17 Past Drug Use History: None Reported - Past Family History Father Family Medical History: Cancer Medications and Allergies Home Medications Medication Instructions Recorded Confirmed Type Cetirizine HCl [Zyrtec] 10 mg PO W/SUPPER 02/25/16 09/16/22 History Teriflunomide [Aubagio] 14 mg PO W/SUPPER 02/25/16 09/16/22 History Cholecalciferol (Vitamin D3) 125 mcg PO DAILY 08/01/22 09/16/22 History [Vitamin D3 (125 MCG = 5,000 IU)] Allergies Allergy/AdvReac Type Severity Reaction Status Date / Time amoxicillin Allergy Rash/Hives Verified 09/21/22 12:20 Penicillins Allergy Rash/Hives Verified 09/21/22 12:20 Sulfa (Sulfonamide Allergy Rash/Hives Verified 09/21/22 12:20 Antibiotics) codeine AdvReac migraine, Verified 09/21/22 12:20 N/V Surgical - Exam Vital Signs Temp Pulse Resp BP Pulse Ox 97.8 F 95 16 137/87 97 09/21/22 12:19 09/21/22 12:19 09/21/22 12:19 09/21/22 12:19 09/21/22 12:19 - General well developed, well nourished, no distress - Eyes PERRL - ENT normal pinna - Neck no masses - Respiratory normal expansion - Cardiovascular Rhythm: regular - Abdomen Abdomen: soft, non tender Assessment and Plan Assessment: GERD. We'll perform EGD. We'll also perform screening colonoscopy.
[2022-09-21] MEDS ORDERED: PROPOFOL 10 MG/ML 20 ML VIAL IV ONE (12:43)
[2022-09-21] MEDS ORDERED: LIDOCAINE 2% INJ 20 MG/ML (2 ML VIAL) ONE (12:43)
--- NOTE | 2022-09-21 13:00 | P.OP ---
Date of Procedure: 09/21/22 Preoperative Diagnosis: GERD Colonoscopy Family history of colon cancer Postoperative Diagnosis: Antral gastritis Sliding hiatal hernia Mild esophagitis Diverticulosis Procedure(s) Performed: EGD Colonoscopy Anesthesia: MAC Surgeon: Akin Davis Pathology: other (Antrum, esophagus) Condition: stable Disposition: PACU Description of Procedure: The patient's placed on the endoscopy table in the lateral position. She received IV sedation. The gastro-/oropharynx passed in the esophagus and sto mach. Scope was then placed through the pylorus. The first and second portion of the duodenum appeared normal. Scope was then brought back the antrum this. Mildly inflamed. A biopsies performed. The scope was then retroflexed stomach. Normal. There was a small sliding hiatal hernia. The GE junction was at 38 cm. The distal esophagus appeared mildly inflamed. A biopsies performed. The proximal esophagus appeared normal. Scope withdrawn for patient. Next digital rectal exam was performed. There was a few external hemorrhoids. The flexible colonoscope was then placed patient anus and passed throughout the colon. The ileocecal valve was visually is. The cecum, ascending and transverse colon appeared normal. In the descending and sigmoid colon was mild diverticular changes. The scope was then brought back the rectum and this appeared normal. Scope withdrawn for patient.
[2022-09-21 13:21] VITALS: BP 120/68; PULSE 76
== END 2022-09-21 13:34 | disposition home or self-care (01) ==
LOC: ORWHC2ENDO 11:56
PROVIDERS: ATTEND Surgery
DX: Z12.11 Encounter for screening for malignant neoplasm of colon (principal); K29.50 Unspecified chronic gastritis without bleeding; K44.9 Diaphragmatic hernia without obstruction or gangrene; K64.4 Residual hemorrhoidal skin tags; K21.00 Gastro-esophageal reflux disease with esophagitis, without bleeding; K57.30 Diverticulosis of large intestine without perforation or abscess without bleeding; Z80.0 Family history of malignant neoplasm of digestive organs; Z87.442 Personal history of urinary calculi; Z98.890 Other specified postprocedural states; F17.200 Nicotine dependence, unspecified, uncomplicated; Z86.59 Personal history of other mental and behavioral disorders; Z88.0 Allergy status to penicillin; Z88.2 Allergy status to sulfonamides; Z88.5 Allergy status to narcotic agent; Z79.899 Other long term (current) drug therapy
CPT/HCPCS: 45378; 81025; 88305; 43239; J2704; J2001

== ENCOUNTER → 2022-11-11 | Outpatient (CLI) | payer OTHER, BC ==
[2022-11-11 14:58] LABS: Basophils % (A) 1.3 %; Eosinophils # (A) 0.37 X 10*3/uL (0.04-0.35); Eosinophils % (A) 4.8 %; HCT 39.4 % (37.2-46.3); HGB 12.9 d/dL (12.0-15.0); Lymphocytes # (A) 2.94 X 10*3/uL (0.90-5.00); MCH 31.6 pg (27.0-32.0); MCHC 32.7 d/dL (32.0-37.0); MCV 96.6 FL (80.0-97.0); Mean Platelet Volume 9.7 FL (9.5-12.2); Monocytes # (A) 0.48 X 10*3/uL (0.20-1.00); Monocytes % (A) 6.2 %; NRBC Per 100 WBC 0 X 10*3/uL (0.00-0.01); Neutrophils # (A) 3.82 X 10*3/uL (1.80-7.70); Neutrophils % (A) 49.4 %; Platelet Count 310 X 10*3/uL (140-440); RBC 4.08 X 10*6/uL (4.10-5.20); RDW 12.6 % (11.5-14.5); WBC 7.73 X 10*3/uL (4.50-10.00)
== END | disposition home or self-care (01) ==
LOC: LABPAT 08:35
PROVIDERS: ATTEND Surgery
DX: Z01.812 Encounter for preprocedural laboratory examination (principal)
CPT/HCPCS: 36415; 85025

== ENCOUNTER 2022-11-20 07:15 | Day surgery (SDC) | payer OTHER, BC ==
[~2022-11-20 07:15] MED LIST changes: +ACETAMINOPHEN TAB 500 MG TAB PO PRN; +DEXAMETHASONE SOD PHOSPHATE 4 MG/ML 1 ML VIAL IV ONE; +HEPARIN SODIUM,PORCINE/PF 5,000 UNIT/0.5 ML SYRINGE SQ PRN; +HYDROmorphone 0.5 MG/0.5 ML SYRINGE IVP PRN; -LACTATED RINGERS 1,000 ML IV SCH; -LIDOCAINE 1% (10MG/ML) FOR IV START INTRADERMA PRN; +ONDANSETRON 4 MG/2 ML VIAL IVP ONE; +SCOPOLAMINE 1 MG/72 HR PATCH TRANSDERM ONE
[2022-11-20] MEDS ORDERED: LACTATED RINGERS 1,000 ML IV ONE ×3 (07:37→12:30)
[2022-11-20] MEDS ORDERED: GLYCOPYRROLATE 0.2 MG/ML 2 ML VIAL ONE (08:27)
[2022-11-20] MEDS ORDERED: ROCURONIUM 10 MG/ML (5 ML VIAL) IV ONE (08:27)
[2022-11-20] MEDS ORDERED: PROPOFOL 10 MG/ML 20 ML VIAL IV ONE (08:27)
[2022-11-20] MEDS ORDERED: MIDAZOLAM 2 MG/2 ML VIAL ONE (08:27)
[2022-11-20] MEDS ORDERED: fentaNYL (PF) 50 MCG/ML 2 ML AMP ONE (08:27)
[2022-11-20] MEDS ORDERED: LIDOCAINE 2% INJ 20 MG/ML (2 ML VIAL) ONE (08:27)
[2022-11-20] MEDS ORDERED: SUCCINYLCHOLINE CHLORIDE 200 MG/10 ML VIAL IV ONE (08:27)
[2022-11-20] MEDS ORDERED: HYDROmorphone (PF) 1 MG/ML ONE (08:27)
[2022-11-20] MEDS ORDERED: NEOSTIGMINE 1 MG/ML 10 ML VIAL ONE (08:27)
[2022-11-20] MEDS ORDERED: BUPIVACAINE (PF) 0.25% 30 ML VIAL SQ ONE (08:51)
--- NOTE | 2022-11-20 09:34 | P.OP ---
Date of Procedure: 11/20/22 Preoperative Diagnosis: GERD Postoperative Diagnosis: GERD Procedure(s) Performed: Laparoscopic Darya fundal plication Anesthesia: NOVA Surgeon: Akin Davis Pathology: none sent Condition: stable Disposition: PACU Description of Procedure: HarThe patient was placed on the operating table in the supine position. The patient received general anesthesia. And was placed in dorsal lithotomy position. The patient was prepped and draped in the usual sterile fashion. The skin incision sites were anesthetized with 1% local Xylocaine. The skin was incised in the left periumbilical area and then using a blade less 5 mm trocar under direct visualization panel cavity was entered. After adequate insufflation the laparoscope was then placed into the peritoneal cavity. Next a 5 mm trochars placed in the right epigastric position. Another 5 millimeter trocar the right lateral position. Another 5 millimeter trocar in the left lateral position a 5 mm trocar is placed in the left epigastric position. And then the initial 5 mm trocar was exchanged for a 10 mm trocar. The left lateral lobe liver was retracted. The hernia was seen. The crural defect was then dissected using the Harmonic scissors device. A 360 crural dissection was performed the esophagus stomach was reduced back into the peritoneal Cavity. The crural defect was then closed using 2-0 Ethibond suture. Next the fundus of the stomach was mobilized using the [place] scissors device. and then a 58-Grenadian bougie dilator was placed oropharynx passed into the esophagus and stomach the fundal plication wrap was then performed by grasping the fundus posteriorly and bringing it around the esophagus and stomach fundoplication was then performed using 2-0 Ethibond suture. Care was taken that the fundal location rested over top of the intra-abdominal esophagus. There was no injury seen to the stomach or esophagus. The dilator was then withdrawn. The abdomen was irrigated there is no bleeding seen. The trochars were then withdrawn and then skin incision sites were closed using 3-0 Monocryl suture Steri-Strips are applied. Patient thought procedure well and sent to recovery room in stable condition.
[2022-11-20] MEDS ORDERED: ONDANSETRON 4 MG/2 ML VIAL IVP PRN (09:38)
[2022-11-20] MEDS: LACTATED RINGERS 1,000 ML IV SCH ×2 (14:02→21:09)
[2022-11-20 15:42] VITALS: BMI 35.7
[2022-11-20] MEDS: D5-0.45% NACL WITH KCL 20MEQ/L 1,000 ML IV SCH (16:30)
[2022-11-20] MEDS ORDERED: NON FORMULARY DRUG (Teriflunomide [Aubagio] 14 MG Tablet) PO SCH (17:30)
[2022-11-20] MEDS ORDERED: LORATADINE 10 MG TAB PO SCH (17:30)
[2022-11-20 19:52] VITALS: RESP 18
[2022-11-21] MEDS: D5-0.45% NACL WITH KCL 20MEQ/L 1,000 ML IV SCH ×2 (00:46→08:47)
[2022-11-21] MEDS: HYDROmorphone 1 MG/ML 1 ML SYRINGE IVP PRN ×2 (05:01→09:02)
[2022-11-21] MEDS ORDERED: CHOLECALCIFEROL 125 MCG (5000 IU) TABLET PO SCH (09:00)
[2022-11-21 14:14] VITALS: BP 108/74; PULSE 82; TEMP 98.5
--- NOTE | 2022-11-21 16:49 | P.DS ---
Providers Date of admission: 11/20/22 09:28 Expected date of discharge: 11/21/22 Attending physician: Akin Davis Consults: 11/20/22 09:38 Consult Physician Routine Consulting Provider: Mina Carson Consult Reason/Comments: Medical management Do you want consulting provider notified?: Yes Primary care physician: Mina Carson [facility] Course: Tolerating full liquid diet. Pain control. Liquid diet advise upon discharge. Follow-up with index surgeon one week. Patient Condition at Discharge: Stable Plan - Discharge Summary Discharge Rx Participant: Yes New Discharge Prescriptions: New Docusate [Colace] 100 mg PO BID #20 capsule Ibuprofen [Motrin] 600 mg PO Q6HR PRN #40 tab PRN Reason: Pain oxyCODONE HCL [OxyIR] 5 mg PO Q6H PRN 3 Days #10 tab PRN Reason: Pain Acetaminophen Tab [Tylenol] 650 mg PO Q6H #30 tab Continue Cetirizine HCl [Zyrtec] 10 mg PO W/SUPPER Teriflunomide [Aubagio] 14 mg PO W/SUPPER Cholecalciferol (Vitamin D3) [Vitamin D3 (125 MCG = 5,000 IU)] 125 mcg PO DAILY Discharge Medication List Cetirizine HCl [Zyrtec] 10 mg PO W/SUPPER 02/25/16 [History] Teriflunomide [Aubagio] 14 mg PO W/SUPPER 02/25/16 [History] Cholecalciferol (Vitamin D3) [Vitamin D3 (125 MCG = 5,000 IU)] 125 mcg PO DAILY 08/01/22 [History] Acetaminophen Tab [Tylenol] 650 mg PO Q6H #30 tab 11/20/22 [Rx] Docusate [Colace] 100 mg PO BID #20 capsule 11/20/22 [Rx] Ibuprofen [Motrin] 600 mg PO Q6HR PRN #40 tab 11/20/22 [Rx] oxyCODONE HCL [OxyIR] 5 mg PO Q6H PRN 3 Days #10 tab 11/20/22 [Rx] Follow up Appointment(s)/Referral(s): Akin Davis MD [STAFF PHYSICIAN] - 1 Week Patient Instructions/Handouts: *Surgery [facility] - Scopalamine Patch Instructions Discharge Disposition: HOME SELF-CARE
--- NOTE | 2022-11-21 19:40 | P.CONS ---
History of Present Illness - History of Present Illness This is a pleasant 47 he is FEMALE with past medical history of GERD, gastroe sophageal reflux disease was progressive and failed outpatient therapy Patient under went laparoscopic Danielle fundoplication by surgery team on 11/20. Today is postoperative day #1 Patient tolerates diet well No significant abdominal pain She is on D5 half-normal saline at 1 25 mL/h No labs. Patient anticipated to go home today. No other symptoms Review of Systems Review of systems CONSTITUTIONAL: No fever, no malaise, no fatigue. HEENT: No recent visual problems or hearing problems. Denied any sore throat. CARDIOVASCULAR: No orthopnea, PND, no palpitations, no syncope. PULMONARY: No shortness of breath, no cough, no hemoptysis. GASTROINTESTINAL: No diarrhea, no nausea, no vomiting, no abdominal pain. Normoactive bowel sounds. NEUROLOGICAL: No headaches, no weakness, no numbness. HEMATOLOGICAL: Denies any bleeding or petechiae. GENITOURINARY: Denies any burning micturition, frequency, or urgency. MUSCULOSKELETAL/RHEUMATOLOGICAL: Denies any joint pain, swelling, or any muscle pain. ENDOCRINE: Denies any polyuria or polydipsia. Past Medical History Past Medical History: GERD/Reflux, Neurologic Disorder Additional Past Medical History / Comment(s): multiple sclerosis, history of kidney stones, hiatal hernia History of Any Multi-Drug Resistant Organisms: None Reported Past Surgical History: Breast Surgery, Orthopedic Surgery Additional Past Surgical History / Comment(s): right knee surg., left breast biopsy, EGD, colonoscopy, danielle Past Anesthesia/Blood Transfusion Reactions: No Reported Reaction Past Psychological History: No Psychological Hx Reported Smoking Status: Current every day smoker Past Alcohol Use History: Occasional Additional Past Alcohol Use History / Comment(s): 1 ppd since age of 17 down to 3/4ppd Past Drug Use History: None Reported - Past Family History Father Family Medical History: Cancer Medications and Allergies Home Medications Medication Instructions Recorded Confirmed Type Cetirizine HCl [Zyrtec] 10 mg PO W/SUPPER 02/25/16 11/17/22 History Teriflunomide [Aubagio] 14 mg PO W/SUPPER 02/25/16 11/17/22 History Cholecalciferol (Vitamin D3) 125 mcg PO DAILY 08/01/22 11/17/22 History [Vitamin D3 (125 MCG = 5,000 IU)] Acetaminophen Tab [Tylenol] 650 mg PO Q6H #30 tab 11/20/22 Rx Docusate [Colace] 100 mg PO BID #20 capsule 11/20/22 Rx Ibuprofen [Motrin] 600 mg PO Q6HR PRN #40 tab 11/20/22 Rx oxyCODONE HCL [OxyIR] 5 mg PO Q6H PRN 3 Days #10 tab 11/20/22 Rx Allergies Allergy/AdvReac Type Severity Reaction Status Date / Time amoxicillin Allergy Rash/Hives Verified 11/17/22 15:46 Penicillins Allergy Rash/Hives Verified 11/17/22 15:46 Sulfa (Sulfonamide Allergy Rash/Hives Verified 11/17/22 15:46 Antibiotics) codeine AdvReac migraine, Verified 11/17/22 15:46 N/V Physical Exam Vitals: Vital Signs Temp Pulse Resp BP Pulse Ox 11/21/22 08:00 98.4 F 80 18 111/73 94 L 11/21/22 00:20 98.0 F 86 18 138/84 90 L 11/20/22 19:18 98.3 F 88 18 129/86 91 L 11/20/22 14:10 98.2 F 89 16 130/86 90 L Intake and Output 11/20/22 11/21/22 11/21/22 22:59 06:59 14:59 Output Total 4 Balance -4 Output: Urine 4 Other: Voiding Method Toilet Toilet # Voids 2 Weight 91.6 kg GENERAL: The patient is alert and oriented x3, not in any acute distress. Well developed, well nourished. HEENT: Pupils are round and equally reacting to light. EOMI. No scleral icterus. No conjunctival pallor. Normocephalic, atraumatic. No pharyngeal erythema. No thyromegaly. CARDIOVASCULAR: S1 and S2 present. No murmurs, rubs, or gallops. PULMONARY: Chest is clear to auscultation, no wheezing . no crackles. ABDOMEN: Soft, nontender, nondistended, normoactive bowel sounds. No palpable organomegaly. MUSCULOSKELETAL: No joint swelling or deformity. EXTREMITIES: No cyanosis, clubbing, or pedal edema. NEUROLOGICAL: Gross neurological examination did not reveal any focal deficits. SKIN: No rashes. no petechiae. Assessment and Plan Assessment: Gastroesophageal reflux disease status post laparoscopic Danielle fundoplication Obesity with BMI of 35 Plan: Continue pain management at the surgery team Continue with specialized liquid diet General surgery team on the case Keep monitoring for now and patient looks medically stable Upon discharge we recommend patient follow up with her PCP Dr. Carson in 1 week and patient was informed with the same and she is agrees GI and DVT prophylaxis Thank you for consulting us
== END 2022-11-21 17:26 | disposition home or self-care (01) ==
LOC: OR 07:15 → 4SSUR 09:28 → UNDOADMOB 09:28 → INTOOBSV 09:28 → 4SSUR 13:35 → UNDODISOB 11-21 17:26 → OR 11-21 17:26
PROVIDERS: ATTEND Surgery
DX: K21.00 Gastro-esophageal reflux disease with esophagitis, without bleeding (principal); K44.9 Diaphragmatic hernia without obstruction or gangrene; K57.30 Diverticulosis of large intestine without perforation or abscess without bleeding; K64.9 Unspecified hemorrhoids; G35 Multiple sclerosis; F17.200 Nicotine dependence, unspecified, uncomplicated; Z88.0 Allergy status to penicillin; Z88.2 Allergy status to sulfonamides; Z88.5 Allergy status to narcotic agent; Z79.899 Other long term (current) drug therapy
CPT/HCPCS: 81025; 43280; J2250; J0330; J1100; J2710; J0690 ×2; J2405; J3010; J1170 ×3; J2704; J1644; J2001

== ENCOUNTER → 2023-09-22 | Outpatient (CLI) | payer BC ==
--- NOTE | 2023-09-24 11:34 | MM ---
Reason for Exam: Screening (asymptomatic). Last screening mammogram was performed 12 month(s) ago. Patient History: Menarche at age 13. Patient has no children. Premenopausal. Hormonal Contraceptives, starting at age 20 for 20 years. 1990, Benign Excisional Biopsy on the left side. 08/05/2020, Benign Core Biopsy on the left side. 08/05/2020, Benign Core Biopsy on the left side. 02/26/2016, High risk Core Biopsy on the left side. 01/16/2016, High risk Core Biopsy on the left side. Paternal grandmother had breast cancer, age 70. Paternal aunt had breast cancer, age 40. Risk Values: Yaneth 5 year model risk: 1.6%. NCI Lifetime model risk: 13.6%. Prior Study Comparison: 07/24/2021 Bilateral Diagnostic Mammogram, [facility]. 01/26/2022 Left MG 3D diag mammo w/cad LT, [facility]. 09/15/2022 Bilateral MG 3D screening mammo w/cad, [facility]. Tissue Density: The breasts are heterogeneously dense, which may obscure small masses. Findings: Analyzed By CAD. There is no suspicious group of microcalcifications or new suspicious mass in either breast. Overall Assessment: Benign, BI-RAD 2 Management: Screening Mammogram of both breasts in 1 year. . Patient should continue monthly self-breast exams. A clinical breast exam by your physician is recommended on an annual basis. This exam should not preclude additional follow-up of suspicious palpable abnormalities. Note on Yaneth scores and lifetime risk: 1. A Yaneth score greater than 3% is considered moderate risk. If this is the case, consider specialist referral to assess eligibility for a risk reducing agent. 2. If overall lifetime risk for the development of breast cancer is 20% or higher, the patient may qualify for future screening with alternating mammogram and breast MRI. Electronically signed and approved by: Darryn Douglass M.D. Radiologis
== END | disposition home or self-care (01) ==
LOC: RADMAMWWP 13:24
PROVIDERS: ATTEND Obstetrics & Gynecology
DX: Z12.31 Encounter for screening mammogram for malignant neoplasm of breast (principal); Z80.3 Family history of malignant neoplasm of breast
CPT/HCPCS: 77063; 77067

== ENCOUNTER → 2023-10-29 | Outpatient (CLI) | payer BC ==
--- NOTE | 2023-10-31 18:01 | US ---
EXAMINATION TYPE: US kidneys/renal and bladder DATE OF EXAM: 10/29/2023 COMPARISON: NONE CLINICAL INDICATION: Female, 48 years old with history of N20.0 CALCULUS OF KIDNEY; Right flank pain, hematuria EXAM MEASUREMENTS: Right Kidney: 11.4 x 5.8 x 4.9 cm Left Kidney: 10.9 x 5.4 x 4.6 cm *Technical limitations due to large amount of overlying bowel gas Right Kidney: mild hydronephrosis Left Kidney: dilated renal pelvis Bladder: appears wnl Bilateral Jets seen: no Mild right hydronephrosis. Prominent left extra renal pelvis without hydronephrosis. No nephrolithias is is seen. No masses are identified. The urinary bladder is anechoic. Bilateral ureteral jets are not seen. IMPRESSION: Mild right hydronephrosis. Consider CT abdomen and pelvis without IV contrast if there is concern for obstructive calculus.
== END | disposition home or self-care (01) ==
LOC: RADUSWWP 14:54
PROVIDERS: ATTEND Family Medicine
DX: N13.30 Unspecified hydronephrosis (principal); N20.0 Calculus of kidney
CPT/HCPCS: 76770

== ENCOUNTER → 2023-11-03 | Outpatient (CLI) | payer BC ==
--- NOTE | 2023-11-03 12:03 | CT ---
EXAMINATION TYPE: CT abdomen pelvis wo con CT DLP: 830.8 mGycm, Automated exposure control for dose reduction was used. DATE OF EXAM: 11/03/2023 10:43 AM COMPARISON: CT abdomen pelvis most recent from 06/24/2019 CLINICAL INDICATION:Female, 48 years old with history of N13.30 HYDRONEPHROSIS; RIGHT FLANK PAIN TECHNIQUE: Axial CT abdomen pelvis wo con;Sagittal and coronal reformats were created on a separate workstation. Contrast used: mL of , (none if empty) Oral contrast used: without Oral Contrast (none if empty) FINDINGS: LOWER CHEST: Unremarkable ABDOMEN LIVER: Unremarkable GALLBLADDER AND BILE DUCTS: Unremarkable. PANCREAS: Unremarkable. SPLEEN: Unremarkable. ADRENAL GLANDS: Unremarkable. KIDNEYS AND URETERS: No evidence of hydronephrosis or renal calculus. The ureters are unremarkable. Phlebolith in the right hemipelvis is unchanged. PELVIS BLADDER: Unremarkable REPRODUCTIVE: Unremarkable. ABDOMEN & PELVIS STOMACH AND BOWEL: Stomach and duodenum are unremarkable. No evidence of bowel obstruction. PERITONEUM/RETROPERITONEUM: No evidence of pneumoperitoneum or free fluid. VASCULATURE: No evidence of aortic aneurysm. MUSCULOSKELETAL: No acute osseous abnormalities LYMPH NODES: No gross evidence for lymphadenopathy. SOFT TISSUE/ABDOMINAL WALL: Unremarkable IMPRESSION: 1. No acute process is detected. No hydronephrosis. No hydroureter. Unchanged position right-sided p hlebolith.
== END | disposition home or self-care (01) ==
LOC: RADCTMAIN 10:20
PROVIDERS: ATTEND Family Medicine
DX: I87.8 Other specified disorders of veins (principal); N13.30 Unspecified hydronephrosis
CPT/HCPCS: 74176

== ENCOUNTER → 2024-08-17 | Outpatient (CLI) | payer BC ==
--- NOTE | 2024-08-17 17:06 | XR ---
EXAMINATION TYPE: XR Hip Complete LT DATE OF EXAM: 08/17/2024 4:32 PM COMPARISON: None. CLINICAL INDICATION: Female, 49 years old with history of M25.552 PAIN IN LEFT HIP, pain TECHNIQUE: XR Hip Complete LT XX views were obtained. FINDINGS: There is no acute fracture/dislocation evident. The joint space appears within normal limits. The o verlying soft tissue appears unremarkable. IMPRESSION: No acute fracture or dislocation. [facility], , 08/17/2024 5:04 PM
== END | disposition home or self-care (01) ==
LOC: RADXRMAIN 16:15
PROVIDERS: ATTEND Family Medicine
DX: M25.552 Pain in left hip (principal)
CPT/HCPCS: 73502

== ENCOUNTER 2024-08-27 21:50 | Emergency (ER) | payer BC ==
[2024-08-27 22:05] VITALS: TEMP 98.3
--- NOTE | 2024-08-27 22:38 | ED ---
General Adult HPI - General Chief complaint: Abdominal Pain Stated complaint: right side abdominal pain Time Seen by Provider: 08/27/24 22:12 Source: patient Mode of arrival: ambulatory - History of Present Illness Initial comments: Patient is a pleasant 49-year-old female history of multiple sclerosis presenting today for right lower quadrant pain. States he just completed a c ourse of antibiotics for UTI through her PCP this past Wednesday. States that she did not actually UTI symptoms but during her routine check she was found to have signs of UTI. Today she began having urinary frequency and this evening dysuria and right lower quadrant pain. States pain feels like prior kidney stones. Prior abdominal surgeries include hiatal hernia surgery. Also notes that she did start her period today so urine is bloody. Last menstrual period was in October and periods are regular. Denies vaginal discharge. Denies nausea vomiting fevers, states she is always cold but otherwise denies chills, denies diarrhea, melena, hematochezia, flank pain. No medications prior to arrival. - Related Data Home Medications Medication Instructions Recorded Confirmed Cetirizine HCl [Zyrtec] 10 mg PO W/SUPPER 02/25/16 11/17/22 Teriflunomide [Aubagio] 14 mg PO W/SUPPER 02/25/16 11/17/22 Cholecalciferol (Vitamin D3) 125 mcg PO DAILY 08/01/22 11/17/22 [Vitamin D3 (125 MCG = 5,000 IU)] Previous Rx's Medication Instructions Recorded Acetaminophen Tab [Tylenol] 650 mg PO Q6H #30 tab 11/20/22 Docusate [Colace] 100 mg PO BID #20 capsule 11/20/22 Ibuprofen [Motrin] 600 mg PO Q6HR PRN #40 tab 11/20/22 oxyCODONE HCL [OxyIR] 5 mg PO Q6H PRN 3 Days #10 tab 11/20/22 Cephalexin [Keflex] 500 mg PO Q12HR 7 Days #14 cap 08/28/24 Allergies Allergy/AdvReac Type Severity Reaction Status Date / Time amoxicillin Allergy Rash/Hives Verified 08/27/24 22:05 Penicillins Allergy Rash/Hives Verified 08/27/24 22:05 Sulfa (Sulfonamide Allergy Rash/Hives Verified 08/27/24 22:05 Antibiotics) codeine AdvReac migraine, Verified 08/27/24 22:05 N/V Review of Systems ROS Statement: Those systems with pertinent positive or pertinent negative responses have been documented in the HPI. ROS Other: All systems not noted in ROS Statement are negative. Constitutional: Denies: fever, chills Respiratory: Denies: dyspnea Cardiovascular: Denies: chest pain Gastrointestinal: Reports: abdominal pain. Denies: nausea, vomiting, diarrhea, melena, hematochezia Genitourinary: Reports: urgency, dysuria, frequency, hematuria, abnormal menses. Denies: discharge Musculoskeletal: Denies: back pain Past Medical History Past Medical History: GERD/Reflux, Neurologic Disorder Additional Past Medical History / Comment(s): multiple sclerosis, history of kidney stones, hiatal hernia History of Any Multi-Drug Resistant Organisms: None Reported Past Surgical History: Breast Surgery, Orthopedic Surgery Additional Past Surgical History / Comment(s): right knee surg., left breast biopsy, EGD, colonoscopy, danielle Past Anesthesia/Blood Transfusion Reactions: No Reported Reaction Past Psychological History: No Psychological Hx Reported Smoking Status: Current every day smoker Past Alcohol Use History: Occasional Past Drug Use History: None Reported - Past Family History Father Family Medical History: Cancer General Exam - General Exam Comments Initial Comments: PE: CONSTITUTIONAL: No apparent distress, well appearing SKIN: Warm, dry, no jaundice, hives or petechiae EYES: Pupils are equally round, extraocular movements intact without nystagmus, clear conjunctiva, non-icteric sclera HENT: Normocephalic, atraumatic, moist mucus membranes, oropharynx clear without exudates NECK: , Full range of motion, normal appearance PULMONARY: Clear to auscultation without wheezes, rhonchi, or rales, normal excursion, no accessory muscle use and no stridor CARDIOVASCULAR: Regular rate, rhythm, normal S1 and S2. No appreciated murmurs, rubs or gallops. Extremities well-perfused no lower extremity edema GASTROINTESTINAL: Soft, active bowel sounds throughout, tenderness to depletion of the right lower quadrant with guarding, non-distended, no palpable masses, no rebound, positive McBurney's point, no periumbilical tenderness to palpation no radiation of pain negative psoas sign, no hepatosplenomegaly GENITOURINARY: MUSCULOSKELETAL: Extremities have no gross deformity, no edema, redness, or swelling. NEUROLOGIC:_a/o x 3, GCS 15, normal mentation and speech. Moves all extremities x 4 without motor or sensory deficit PSYCHIATRIC:_normal mood and affect, thought process is clear and linear Course Vital Signs 08/27/24 08/27/24 22:03 23:15 Temperature 98.3 F Pulse Rate 111 H 98 Respiratory 18 18 Rate Blood Pressure 136/85 121/64 O2 Sat by Pulse 97 100 Oximetry Medical Decision Making - Medical Decision Making Was pt. sent in by a medical professional or institution (, PA, EMPLOYER RELATIONS REPRESENTATIVE, urgent care, hospital, or [facility]...) When possible be specific @ -No Did you speak to anyone other than the patient for history (EMS, parent, family, police, friend...)? What history was obtained from this source @ -No Did you review nursing and triage notes (agree or disagree)? Why? @ -I reviewed nursing and triage notes Were old charts reviewed (outside hosp., previous admission, EMS record, old EKG, old radiological studies, urgent care reports/EKG's, [facility] records)? Report findings @ -Medical records reviewed reviewed CT scan from 11/03/2023 showed right sided phlebolith in the pelvis without hydroureter or hydronephrosis Differential Diagnosis (chest pain, altered mental status, abdominal pain women, abdominal pain men, vaginal bleeding, weakness, fever, dyspnea, syncope, headache, dizziness, GI bleed, back pain, seizure, CVA, palpatations, mental health, musculoskeletal)? @Differential Abdominal Pain Women: Appendicitis, Cholecystitis, diverticulosis, ischemic bowel, pancreatitis, hepatitis, UTI, gastroenteritis, AAA, incarcerated hernia, bowel obstruction, constipation, inflammatory bowel, hepatitis, peptic ulcer disease, splenic infarction, perforated viscus, vulvitis, ovarian torsion, PID, kidney stone, placenta abruption, this is not meant to be an all-inclusive list EKG interpreted by me (3pts min.). @ -As above X-rays interpreted by me (1pt min.). @ -None done CT interpreted by me (1pt min.). @ -I personally reviewed CT scan, I see no evidence of hydronephrosis, ureterolithiasis or appendicitis I agree with radiologist interpretation U/S interpreted by me (1pt. min.). @ -None done What testing was considered but not performed or refused? (CT, X-rays, U/S, labs)? Why? @ -None What meds were considered but not given or refused? Why? @ -None Did you discuss the management of the patient with other professionals (professionals i.e. , PA, EMPLOYER RELATIONS REPRESENTATIVE, lab, RT, psych nurse, social service manager, electron microprobe operator, teacher, special assets officer, caser shoe parts)? Give summary @ -No Was smoking cessation discussed for >3mins.? @ -No Was critical care preformed (if so, how long)? @ -No Were there social determinants of health that impacted care today? How? (Homelessness, low income, unemployed, alcoholism, drug addiction, transpor tation, low edu. Level, literacy, decrease access to med. care, snf, rehab)? @ -No Was there de-escalation of care discussed even if they declined (Discuss DNR or withdrawal of care, Hospice)? @ -No What co-morbidities impacted this encounter? (DM, HTN, Smoking, COPD, CAD, Cancer, CVA, ARF, Chemo, Hep., AIDS, mental health diagnosis, sleep apnea, morbid obesity)? @ -None Was patient admitted / discharged? Hospital course, mention meds given and route, prescriptions, significant lab abnormalities, going to OR and other pertinent info. @ -Hospital course this is a pleasant 49-year-old female presenting for lower quadrant pain urinary frequency, dysuria with concerns for kidney stone. Patien t mildly tachycardic on arrival with pulse 111 bpm, otherwise vital signs within acceptable limits. Exam significant for right lower quadrant tenderness palpation. No CVA tenderness. Discussed with patient plan for CT abdomen pelvis with contrast, as highest concern for ureterolithiasis versus ap pendicitis, additional differential as noted above. Pain control Toradol, IV fluids basic labs urinalysis. Patient agreeable plan of care. Urinalysis consistent with urinary tract infection. Reviewed prior urine cultures, the 2 that we have available showed no growth so unable to check for sensitivities. Patient will be given IV Rocephin. Patient is mildly tachycardic on arrival with elevated white blood cell count so does technically meet SIRS criteria however she is not toxic appearing. A blood culture will be ordered abdomen succussion Scan shows no obvious obstructing stone though was technically limited due to contrast. No appendicitis. Discussed these findings with the patient and given no documented stone or signs of obstructing stone discussed the patient discharged with prescription for acute cystitis. Patient agreeable plan. We discussed strict return precautions warranting return to the emergency department, the importance of drinking plenty of clear fluids and following up with her primary care provider. Patient plan of care In my medical judgment there is currently no evidence of an immediate life- threatening or surgical condition. Discharge is therefore indicated at this time. Discharge treatment instructions, follow up instructions, and appropriate emergency department return precautions were discussed with the patient and/or medical decision maker. Patient and/or medical decision maker expressed understanding of and agreed with the treatment plan, follow up instructions, and emergency department return precaution. All patient's and/or medical decision maker's questions were answered. The patient was advised that a small risk still exists that a serious condition could develop and was therefore instructed to return to the ED for any changes in symptoms, persistent symptoms, inability to obtain proper follow-up or for any further concerns. Patient received verbal and written instructions for this condition. Undiagnosed new problem with uncertain prognosis? @ -No Drug Therapy requiring intensive monitoring for toxicity (Heparin, Nitro, Insulin, Cardizem)? @ -No Were any procedures done? @ -No Diagnosis/symptom? Urinary tract infection Acute, or Chronic, or Acute on Chronic? @Acute Uncomplicated (without systemic symptoms) or Complicated (systemic symptoms)? Uncomplicated Side effects of treatment? @ -No Exacerbation, Progression, or Severe Exacerbation? @ -No Poses a threat to life or bodily function? How? (Chest pain, [place], CA, pneumonia, PE, COPD, DKA, ARF, appy, cholecystitis, CVA, Diverticulitis, Homicidal, Suicidal, threat to staff... and all critical care pts) @ -No - Lab Data Result diagrams: 08/27/24 22:48 08/27/24 22:48 Lab Results 08/27/24 08/27/24 08/27/24 Range/Units 22:48 22:48 22:48 WBC 11.3 H (3.8-10.6) k/uL RBC 4.29 (3.80-5.40) m/uL Hgb 13.1 (11.4-16.0) gm/dL Hct 40.7 (34.0-46.0) % MCV 95.0 (80.0-100.0) fL MCH 30.5 (25.0-35.0) pg MCHC 32.1 (31.0-37.0) g/dL RDW 12.8 (11.5-15.5) % Plt Count 307 (150-450) k/uL MPV 8.1 Neutrophils % 69 % Lymphocytes % 23 % Monocytes % 3 % Eosinophils % 3 % Basophils % 1 % Neutrophils # 7.8 H (1.3-7.7) k/uL Lymphocytes # 2.6 (1.0-4.8) k/uL Monocytes # 0.4 (0-1.0) k/uL Eosinophils # 0.3 (0-0.7) k/uL Basophils # 0.1 (0-0.2) k/uL PT 10.4 (10.0-12.5) sec INR 0.9 (<1.2) APTT 23.6 (22.0-30.0) sec Sodium (137-145) mmol/L Potassium (3.5-5.1) mmol/L Chloride (98-107) mmol/L Carbon Dioxide (22-30) mmol/L Anion Gap mmol/L BUN (7-17) mg/dL Creatinine (0.52-1.04) mg/dL Est GFR (CKD-EPI)AfAm (>60 ml/min/1.73 sqM) Est GFR (CKD-EPI)NonAf (>60 ml/min/1.73 sqM) Glucose (74-99) mg/dL Plasma Lactic Acid James (0.7-2.0) mmol/L Calcium (8.4-10.2) mg/dL Total Bilirubin (0.2-1.3) mg/dL AST (14-36) U/L ALT (4-34) U/L Alkaline Phosphatase (38-126) U/L Total Protein (6.3-8.2) g/dL Albumin (3.5-5.0) g/dL Lipase (23-300) U/L Urine Color Red Urine Appearance Turbid H (Clear) Urine pH 5.5 (5.0-8.0) Ur Specific [place] 1.022 (1.001-1.035) Urine Protein 2+ H (Negative) Urine Glucose (UA) Negative (Negative) Urine Ketones Trace H (Negative) Urine Blood Large H (Negative) Urine Nitrite Positive H (Negative) Urine Bilirubin Negative (Negative) Urine Urobilinogen <2.0 (<2.0) mg/dL Ur Leukocyte Esterase Large H (Negative) Urine RBC >182 H (0-5) /hpf Urine WBC >182 H (0-5) /hpf Urine WBC Clumps Many H (None) /hpf Calcium Oxalate Crystal Many H (None) /hpf Urine Bacteria Occasional H (None) /hpf Urine Mucus Moderate H (None) /hpf Urine Yeast (Budding) Occasional H (None) /hpf Urine HCG, Qual (Not Detectd) 08/27/24 08/27/24 08/27/24 Range/Units 22:48 22:48 22:48 WBC (3.8-10.6) k/uL RBC (3.80-5.40) m/uL Hgb (11.4-16.0) gm/dL Hct (34.0-46.0) % MCV (80.0-100.0) fL MCH (25.0-35.0) pg MCHC (31.0-37.0) g/dL RDW (11.5-15.5) % Plt Count (150-450) k/uL MPV Neutrophils % % Lymphocytes % % Monocytes % % Eosinophils % % Basophils % % Neutrophils # (1.3-7.7) k/uL Lymphocytes # (1.0-4.8) k/uL Monocytes # (0-1.0) k/uL Eosinophils # (0-0.7) k/uL Basophils # (0-0.2) k/uL PT (10.0-12.5) sec INR (<1.2) APTT (22.0-30.0) sec Sodium 139 (137-145) mmol/L Potassium 3.6 (3.5-5.1) mmol/L Chloride 105 (98-107) mmol/L Carbon Dioxide 26 (22-30) mmol/L Anion Gap 8 mmol/L BUN 11 (7-17) mg/dL Creatinine 0.67 (0.52-1.04) mg/dL Est GFR (CKD-EPI)AfAm >90 (>60 ml/min/1.73 sqM) Est GFR (CKD-EPI)NonAf >90 (>60 ml/min/1.73 sqM) Glucose 106 H (74-99) mg/dL Plasma Lactic Acid James 1.4 (0.7-2.0) mmol/L Calcium 9.4 (8.4-10.2) mg/dL Total Bilirubin 0.3 (0.2-1.3) mg/dL AST 21 (14-36) U/L ALT 16 (4-34) U/L Alkaline Phosphatase 71 (38-126) U/L Total Protein 6.2 L (6.3-8.2) g/dL Albumin 3.9 (3.5-5.0) g/dL Lipase 122 (23-300) U/L Urine Color Urine Appearance (Clear) Urine pH (5.0-8.0) Ur Specific [place] (1.001-1.035) Urine Protein (Negative) Urine Glucose (UA) (Negative) Urine Ketones (Negative) Urine Blood (Negative) Urine Nitrite (Negative) Urine Bilirubin (Negative) Urine Urobilinogen (<2.0) mg/dL Ur Leukocyte Esterase (Negative) Urine RBC (0-5) /hpf Urine WBC (0-5) /hpf Urine WBC Clumps (None) /hpf Calcium Oxalate Crystal (None) /hpf Urine Bacteria (None) /hpf Urine Mucus (None) /hpf Urine Yeast (Budding) (None) /hpf Urine HCG, Qual Not Detected (Not Detectd) Disposition Clinical Impression: UTI (urinary tract infection) Disposition: HOME SELF-CARE Condition: Good Instructions (If sedation given, give patient instructions): Urinary Tract Infection in Women (DC) Additional Instructions: Every disease is a spectrum and a small chance still exists that a serious condition could develop, for this reason, please monitor yourself closely for new, changing or worsening symptoms, symptoms that do not begin to improve over the course of the next 48 hours, change of location or intensity of pain or uncontrolled pain, failure symptoms to resolve by the time antibiotics are completed, confusion, flank pain, fever, inability to tolerate/keep down fluids or your medications, inability to follow up with outpatient providers as instructed and should you experience these symptoms or should you have any further concerns for your wellbeing please return to the ED or call 911 immediately. Please follow-up with your primary care provider within 1 week to recheck urine and ensure resolution of UTI. Please drink plenty of clear fluids. PLEASE call your primary care physician as soon as possible to arrange / discuss plan for followup appointment. Appointment in the next 1-3 days is strongly encouraged if possible. PLEASE let us know here before you leave if there is anything further we can do to be of any assistance. Take care and feel Better! Prescriptions: Cephalexin [Keflex] 500 mg PO Q12HR 7 Days #14 cap Is patient prescribed a controlled substance at d/c from ED?: No Referrals: Mina Carson MD [Primary Care Provider] - 1-2 days
[2024-08-27 23:02] LABS: Basophils # (A) 0.1 k/uL (0-0.2); Basophils % (A) 1 %; Eosinophils # (A) 0.3 k/uL (0-0.7); Eosinophils % (A) 3 %; HCT 40.7 % (34.0-46.0); HGB 13.1 gm/dL (11.4-16.0); Lymphocytes # (A) 2.6 k/uL (1.0-4.8); Lymphocytes % (A) 23 %; MCH 30.5 pg (25.0-35.0); MCHC 32.1 g/dL (31.0-37.0); Mean Platelet Volume 8.1; Monocytes # (A) 0.4 k/uL (0-1.0); Monocytes % (A) 3 %; Neutrophils # (A) 7.8 k/uL (1.3-7.7); Neutrophils % (A) 69 %; Platelet Count 307 k/uL (150-450); RBC 4.29 m/uL (3.80-5.40); RDW 12.8 % (11.5-15.5); WBC 11.3 k/uL (3.8-10.6)
[2024-08-27] MEDS: SODIUM CHLORIDE 0.9% 1,000 ML IV ONE (23:11)
[2024-08-27] MEDS: KETOROLAC 15 MG/ML 1 ML VIAL IVP STA (23:12)
[2024-08-27 23:16] LABS: Appearance,Urine Turbid (Clear); Bacteria,Urine Occasional /hpf; Bilirubin,Urine Negative (Negative); Blood,Urine Large (Negative); Budding Yeast,Urine Occasional /hpf; Calcium Oxalate Crystals,Urine Many /hpf; Color,Urine Red; Glucose,Urine (UA) Negative (Negative); Ketones,Urine Trace (Negative); Leukocyte Esterase,Urine Large (Negative); Mucus,Urine Moderate /hpf; Nitrite,Urine Positive (Negative); PH, Urine 5.5 (5.0-8.0); Protein,Urine 2+ (Negative); RBC,Urine >182 /hpf (0-5); Urobilinogen,Urine <2.0 mg/dL (<2.0); WBC,Urine >182 /hpf (0-5)
[2024-08-27 23:18] LABS: Specific Gravity,Urine 1.022 (1.001-1.035)
[2024-08-27 23:24] LABS: ALT 16 U/L (4-34); AST 21 U/L (14-36); African American GFR (CKD) >90 (>60 ml/min/1.73 sqM); Albumin 3.9 g/dL (3.5-5.0); Alkaline Phosphatase 71 U/L (38-126); Anion Gap 8 mmol/L; Blood Urea Nitrogen 11 mg/dL (7-17); Calcium 9.4 mg/dL (8.4-10.2); Carbon Dioxide 26 mmol/L (22-30); Chloride 105 mmol/L (98-107); Glucose 106 mg/dL (74-99); Lipase 122 U/L (23-300); Non-African American GFR(CKD) >90 (>60 ml/min/1.73 sqM); Potassium 3.6 mmol/L (3.5-5.1); Sodium 139 mmol/L (137-145); Total Bilirubin 0.3 mg/dL (0.2-1.3); Total Protein 6.2 g/dL (6.3-8.2)
[2024-08-27 23:30] LABS: INR 0.9 (<1.2); Partial Thromboplastin Time 23.6 sec (22.0-30.0); Prothrombin Time 10.4 sec (10.0-12.5)
--- NOTE | 2024-08-27 23:46 | CT ---
EXAM: CT Abdomen and Pelvis With Intravenous Contrast CLINICAL HISTORY: RLQ abd pain, pt thinks kidney stone, has appendix TECHNIQUE: Axial computed tomography images of the abdomen and pelvis with intravenous contrast. CTDI is 27.9 mGy and DLP is 1316.2 mGy-cm. This CT exam was performed using one or more of the following dose reduction techniques: automated exposure control, adjustment of the mA and/or kV according to patient size, and/or use of iterative reconstruction technique. COMPARISON: CT abdomen and pelvis without contrast dated 11/03/2023 FINDINGS: Lung bases: Unremarkable. No mass. No consolidation. ABDOMEN: Liver: Low attenuation focus in the liver which may be due to a cyst but is too small to characterize. Gallbladder and bile ducts: The gallbladder is only mildly fluid filled. No calcified gallstones. No CT evidence for gallbladder wall thickening or biliary dilatation. Pancreas: Unremarkable. No mass. No ductal dilation. Spleen: Unremarkable. No splenomegaly. Adrenals: Unremarkable. No mass. Kidneys and ureters: The kidneys demonstrate normal enhancement without hydronephrosis. Evaluation or nephrolithiasis is somewhat limited with contrast. No obstructive ureteral stones. Evaluation for bladder wall thickening is limited with complete decompression. No obvious bladder stones. Delayed phase imaging demonstrates normal excreted contrast in the renal collecting systems. No appreciable contrast in the proximal ureters. Stomach and bowel: The stomach is moderately distended with fluid and minimal retained oral contents. No gastric mucosal thickening. No bowel obstruction. No asymmetric bowel mucosal abnormality. Mild stool burden. No appreciable diverticulitis. PELVIS: Appendix: Normal caliber retrocecal appendix noted within the right lower quadrant. Bladder: Unremarkable. No mass. Reproductive: Unremarkable as visualized. ABDOMEN and PELVIS: Intraperitoneal space: Unremarkable. No free air. No significant fluid collection. Bones/joints: Stable grade 1 anterolisthesis of L4 on L5. Multilevel degenerative changes, similar. No acute osseous abnormality. No dislocation. Soft tissues: Unremarkable. Vasculature: Unremarkable. No abdominal aortic aneurysm. Lymph nodes: Unremarkable. No enlarged lymph nodes. IMPRESSION: 1. The kidneys demonstrate normal enhancement without hydronephrosis. Evaluation or nephrolithiasis is somewhat limited with contrast. No obstructive ureteral stones. Evaluation for bladder wall thickening is limited with complete decompression. No obvious bladder stones. Delayed phase imaging demonstrates normal excreted contrast in the renal collecting systems. No appreciable contrast in the proximal ureters. 2. Normal caliber retrocecal appendix noted within the right lower quadrant. No bowel obstruction. No free intraperitoneal fluid or pneumoperitoneum.
[2024-08-28] MEDS: cefTRIAXone IN SWFI 1,000 MG/10 ML SYRINGE IVP STA (00:24)
[2024-08-28] MEDS: CEPHALEXIN 500MG STARTER PACK 4 CAP BTL PO STA (00:25)
[2024-08-28 00:31] VITALS: BP 122/78; PULSE 86; RESP 17
== END 2024-08-28 00:31 | disposition home or self-care (01) ==
LOC: EC 21:50
DX: N39.0 Urinary tract infection, site not specified (principal); F17.200 Nicotine dependence, unspecified, uncomplicated; Z88.0 Allergy status to penicillin; Z88.2 Allergy status to sulfonamides; Z88.5 Allergy status to narcotic agent
CPT/HCPCS: 36415; 80053; 83605; 83690; 85025; 85610; 85730; 81001; 81025; 87086; 74177; 99285; 96374; 96361; 96375; J1885; Q9967; 87040